=== PATIENT | female | born 1990 | race Caucasian/White ===

== ENCOUNTER 2023-05-27 04:40 | Inpatient (IN) | payer BC ==
[2023-05-27] MEDS ORDERED: ePHEDrine 50 MG/ML SDV IVPUSH PRN (05:44)
[2023-05-27] MEDS ORDERED: Ondansetron 4 MG/2 ML SDV IVPUSH PRN ×3 (05:44→09:40)
[2023-05-27] MEDS ORDERED: HYDROmorphone 1 MG/ML Syringe IVPUSH PRN (05:44)
[2023-05-27] MEDS ORDERED: fentaNYL 100 MCG/2 ML SDV IVPUSH PRN (05:44)
[2023-05-27] MEDS ORDERED: Albuterol 0.083% 2.5 MG/3 ML Neb Soln NEB PRN (05:44)
[2023-05-27] MEDS ORDERED: Acetaminophen/oxyCODONE 325-5 MG Tab PO PRN ×2 (05:44→09:40)
[2023-05-27] MEDS ORDERED: droPERidol 5 MG/2 ML SDV IVPUSH PRN (05:44)
[2023-05-27] MEDS ORDERED: diphenhydrAMINE 50 MG/ML SDV IVPUSH PRN ×2 (05:44→09:40)
[2023-05-27] MEDS ORDERED: Naloxone 0.4 MG/ML SDV IVPUSH PRN (05:44)
[2023-05-27] MEDS ORDERED: fentaNYL 50 MCG/ML SDV IVPUSH PRN (05:44)
[2023-05-27] MEDS ORDERED: Morphine 2 MG/ML SYRINGE IVPUSH PRN (05:44)
[2023-05-27] MEDS ORDERED: Metoclopramide 10 MG/2 ML SDV IVPUSH PRN (05:44)
[2023-05-27] MEDS: Lactated Ringers 1,000 ML IV SCH ×2 (06:00→07:09)
[2023-05-27] MEDS ORDERED: Sodium Chloride 0.9% 20 ML SDV IV PRN (06:19)
[2023-05-27] MEDS ORDERED: Sodium Chloride 0.9% 2.5 ML Syringe FLUSH PRN (06:19)
[2023-05-27] MEDS ORDERED: ceFAZolin 2 GM in Sodium Chloride 0.9% 50 ML IV ONE (06:19)
[2023-05-27] MEDS ORDERED: Citric Acid/Sodium Citrate Solution 30 ML Cup PO ONE (06:19)
[2023-05-27] MEDS ORDERED: Sodium Chloride 0.9% 10 ML Syringe FLUSH PRN (06:19)
[2023-05-27 06:28] LABS: HEMATOCRIT 37.3 % (36.0-46.0); HEMOGLOBIN 12.9 g/dL (12.0-16.0); MEAN CORPUSCULAR HEMOGLOBIN 27.6 pg (27.0-32.0); MEAN CORPUSCULAR HGB CONC 34.6 g/dL (31.0-37.0); MEAN CORPUSCULAR VOLUME 79.9 fL (80.0-98.0); MEAN PLATELET VOLUME 10.2 fL (7.40-12.00); RED BLOOD CELL COUNT 4.67 M/uL (4.30-5.90); WHITE BLOOD CELL COUNT,WBC 8.96 K/uL (4.0-11.0)
[2023-05-27] MEDS ORDERED: Oxytocin/0.9 % Sodium Chloride 30 UNIT/500 ML BAG IV SCH (06:30)
[2023-05-27] MEDS ORDERED: Phenylephrine 1% 10 MG/ML SDV ONE (06:36)
[2023-05-27] MEDS ORDERED: Ropivacaine 0.5% 5 MG/ML 30 ML SDV ONE (06:36)
[2023-05-27] MEDS ORDERED: Water For Injection, Sterile 20 ML ONE (06:36)
[2023-05-27] MEDS ORDERED: ceFAZolin 1 GM Vial ONE (06:36)
[2023-05-27] MEDS ORDERED: droPERidol 5 MG/2 ML SDV ONE (06:36)
[2023-05-27] MEDS ORDERED: Ondansetron 4 MG/2 ML SDV ONE (06:36)
[2023-05-27] MEDS ORDERED: Dexamethasone 4 MG/ML 5 ML MDV ONE (06:36)
[2023-05-27] MEDS ORDERED: Oxytocin 10 Units/1 ML SDV ONE ×2 (06:36→08:18)
[2023-05-27] MEDS ORDERED: Ketorolac 30 MG/ML SDV ONE (06:37)
[2023-05-27] MEDS ORDERED: fentaNYL 100 MCG/2 ML SDV ONE (06:46)
[2023-05-27] MEDS ORDERED: Morphine PF 10 MG/10 ML SDV ONE (06:47)
[2023-05-27] MEDS ORDERED: Lidocaine 2% 5 ML SDV ONE (06:49)
[2023-05-27] MEDS ORDERED: Tranexamic Acid 1,000 MG/10 ML Vial ONE (08:40)
[2023-05-27] MEDS ORDERED: Bisacodyl 10 MG Supp RECTAL PRN (09:40)
[2023-05-27] MEDS ORDERED: Oxytocin 10 Units/1 ML SDV IM PRN (09:40)
[2023-05-27] MEDS ORDERED: Lanolin 100% Cream 7 GM Tube TOP PRN (09:40)
[2023-05-27] MEDS ORDERED: Misoprostol 200 MCG Tab RECTAL PRN (09:40)
[2023-05-27] MEDS ORDERED: Methylergonovine 0.2 MG/1 ML Amp IM PRN (09:40)
[2023-05-27] MEDS ORDERED: Lactated Ringers 1,000 ML IV SCH (09:45)
[2023-05-27 09:52] LABS: PH,UMBILICAL VENOUS 7.337 (7.25-7.45)
[2023-05-27] MEDS ORDERED: Ketorolac 30 MG/ML SDV IVPUSH SCH (13:00)
[2023-05-27] MEDS: Ketorolac 30 MG/ML SDV IVPUSH SCH ×2 (14:53→20:31)
[2023-05-27] MEDS: Docusate Sodium 100 MG Cap PO SCH (20:30)
[2023-05-28] MEDS: Ketorolac 30 MG/ML SDV IVPUSH SCH ×2 (02:27→08:34)
[2023-05-28 06:08] LABS: HEMATOCRIT 29.3 % (36.0-46.0); HEMOGLOBIN 9.7 g/dL (12.0-16.0)
[2023-05-28] MEDS: Ibuprofen 800 MG Tab PO PRN (19:16)
[2023-05-28] MEDS: Docusate Sodium 100 MG Cap PO SCH (21:17)
[2023-05-29] MEDS: Acetaminophen/oxyCODONE 325-5 MG Tab PO PRN ×2 (02:03→09:19)
[2023-05-29] MEDS: Ibuprofen 800 MG Tab PO PRN (04:47)
[2023-05-29 05:32] VITALS: PULSE 85
[2023-05-29] MEDS: Docusate Sodium 100 MG Cap PO SCH (09:22)
[2023-05-29 11:36] VITALS: BP 126/80
== END 2023-05-29 11:55 | disposition home or self-care (01) | DRG 540 ==
LOC: MW.OB 04:40
PROVIDERS: ADMIT Obstetrics & Gynecology; ATTEND Obstetrics & Gynecology
PROC: 10D00Z1 Extraction of Products of Conception, Low, Open Approach (ICD-10-PCS; principal; 2023-05-27)
PROC: 0T9B70Z Drainage of Bladder with Drainage Device, Via Natural or Artificial Opening (ICD-10-PCS; 2023-05-27)
DX: O44.43 Low lying placenta NOS or without hemorrhage, third trimester (principal); G43.909 Migraine, unspecified, not intractable, without status migrainosus; O99.354 Diseases of the nervous system complicating childbirth; O99.02 Anemia complicating childbirth; D64.9 Anemia, unspecified; Z87.891 Personal history of nicotine dependence; Z90.49 Acquired absence of other specified parts of digestive tract; Z98.890 Other specified postprocedural states; Z97.3 Presence of spectacles and contact lenses; Z37.0 Single live birth; Z3A.38 38 weeks gestation of pregnancy
CPT/HCPCS: 36415; 59025; 82803; 85014; 85018; 85027; 86592; 86850; 86900; 86901; A9270-GY; J0131; J0690; J1100; J1790; J1885; J2274; J2370; J2405; J2590; J2795; J3010; J3490; J7120